=== PATIENT | female | born 2000 ===

== ENCOUNTER 2024-02-12 16:24 | Outpatient (CLI) | payer OTHER, SELFPAY | END 2024-02-12 16:25 | disposition home or self-care (01) | PROVIDERS: PCP Emergency Medicine; Visit Provider Emergency Medicine | DX: N92.6 Irregular menstruation, unspecified (principal); R41.89 Other symptoms and signs involving cognitive functions and awareness; F41.9 Anxiety disorder, unspecified | CPT/HCPCS: 84146; 84443 ==

== ENCOUNTER 2024-11-18 16:13 | Outpatient (CLI) | payer OTHER, SELFPAY ==
[2024-11-25 14:20] LABS: Pap Test Digital Imaging Done
== END 2024-11-18 16:14 | disposition home or self-care (01) ==
LOC: LKVREF 16:13
PROVIDERS: PCP Emergency Medicine; Visit Provider Emergency Medicine
DX: Z12.4 Encounter for screening for malignant neoplasm of cervix (principal)
CPT/HCPCS: 88141; 88142; 88175